=== PATIENT | female | born 1945 | race Caucasian/White ===

== ENCOUNTER 2018-03-25 09:33 | Emergency (ER) | payer OTHER | END 2018-03-25 10:39 | disposition home or self-care (01) | LOC: EDH 09:33 | DX: S93.515A Sprain of interphalangeal joint of left lesser toe(s), initial encounter (principal); S80.01XA Contusion of right knee, initial encounter; S60.512A Abrasion of left hand, initial encounter; Z98.890 Other specified postprocedural states; W10.8XXA Fall (on) (from) other stairs and steps, initial encounter; Y93.89 Activity, other specified; Y92.89 Other specified places as the place of occurrence of the external cause; Y99.8 Other external cause status | CPT/HCPCS: 73502; 73562; 73630 ==

== ENCOUNTER 2018-12-11 11:36 | Emergency (ER) | payer MEDICARE, OTHER ==
[2018-12-11 11:56] LABS: APPEARANCE,URINE Clear (CLEAR); BILIRUBIN,URINE Negative (NEGATIVE); COLOR,URINE Yellow (YELLOW); GLUCOSE, URINE (UA) Negative (NEGATIVE); KETONES,URINE 40 mg/dL (NEGATIVE); LEUKOCYTE ESTERASE ,URINE Small (NEGATIVE); NITRATE,URINE Negative (NEGATIVE); OCCULT BLOOD,URINE Negative (NEGATIVE); PROTEIN,URINE Negative (NEGATIVE)
[2018-12-11 11:56] LABS: BASOPHILS % (AUTO) 0.1 % (0.0-5.0); HEMATOCRIT 37.8 % (36-48); LYMPHOCYTES % (AUTO) 3.1 % (21.0-51.0); MEAN CORPUSCULAR HGB CONC 33.2 g/dL (32.0-36.0); MEAN CORPUSCULAR VOLUME 87.3 fL (79-99); MONOCYTES % (AUTO) 4.4 % (3.0-13.0); NEUTROPHILS % (AUTO) 92.4 % (40.0-77.0); PLATELET COUNT (AUTO) 254 K/uL (130-400); RED BLOOD CELL COUNT(AUTO) 4.33 MIL/uL (4.00-5.50); WHITE BLOOD COUNT (AUTO) 9.8 K/uL (4.8-10.8)
[2018-12-11] MEDS ORDERED: CEFTRIAXONE SODIUM 1 GM ONE (12:04)
[2018-12-11] MEDS ORDERED: SODIUM CHLORIDE 0.9% 50 ML IV ONE (12:05)
[2018-12-11 12:09] LABS: CARBON DIOXIDE 26 mmol/L (21-32); CHLORIDE 104 mmol/L (101-111); CREATININE 0.8 mg/dL (0.5-1.5); GLOMERULAR FILTR. RATE CALC 74 mL/min (>60); GLUCOSE,RANDOM 101 mg/dL (70-105); POTASSIUM 3.8 mmol/L (3.5-5.1); SODIUM SERUM 143 mmol/L (136-145); UREA NITROGEN, BLOOD 7 mg/dL (7-18)
[2018-12-11 12:11] LABS: INR 0.96 (0.85-1.15); PROTHROMBIN TIME 10.1 SEC (9.6-11.6)
[2018-12-11 12:21] LABS: ALANINE AMINOTRANSFERASE 88 U/L (12-78); ALBUMIN 3.5 g/dL (3.5-5.0); ASPARTATE AMINOTRANSFERASE 74 U/L (10-37); BILIRUBIN,TOTAL 0.5 mg/dL (0.2-1.0); CREATINE KINASE, TOTAL 25 U/L (21-232); MYOGLOBIN 44 ng/mL (10-92); TOTAL PROTEIN, SERUM 7.1 g/dL (6.0-8.3); TROPONIN I < 0.04 ng/mL (0.00-0.06)
[2018-12-11] MEDS ORDERED: LEVOFLOXACIN 500 MG/D5W 100 ML 100 ML ONE (12:23)
[2018-12-11 12:34] LABS: BACTERIA,URINE Rare /HPF (None Seen); RBC,URINE 0-1 /HPF (0-1)
[2018-12-11] MEDS ORDERED: METHYLPREDNISOLONE SOD SUCC 125MG/2ML VIAL ONE (13:06)
[2018-12-11] MEDS ORDERED: IPRATROPIUM/ALBUTEROL SULFATE 3 ML SOLUTION IH ONE (13:22)
[2018-12-11] MEDS ORDERED: ACETAMINOPHEN 325 MG TAB ONE (13:32)
[2018-12-11] MEDS ORDERED: ONDANSETRON HCL 4 MG/2 ML VIAL ONE (16:05)
[2018-12-11] MEDS ORDERED: ACETAMINOPHEN-CODEINE 300/30MG TAB ONE (16:05)
[2018-12-11] MEDS ORDERED: SODIUM CHLORIDE 0.9% 500ML 500 ML IV ONE (16:06)
== END 2018-12-11 17:30 | disposition home or self-care (01) ==
LOC: EDH 11:36
DX: J44.9 Chronic obstructive pulmonary disease, unspecified (principal); B34.9 Viral infection, unspecified; J06.9 Acute upper respiratory infection, unspecified; Z88.6 Allergy status to analgesic agent
CPT/HCPCS: 36415; 71045; 80053; 81001; 82550; 83605; 83874; 83880; 84484; 85025; 85610; 85730; 87040 ×2; 87088; 87804 ×2; 93005; 94640; 96365; 96366; 96375; 99285; J0696; J1956; J2405; J2930; J7040

== ENCOUNTER 2019-09-01 10:25 | Observation (INO) | payer MEDICARE ==
[~2019-09-01] VITALS: Ht 160 cm; Wt 54.8 kg
[2019-09-01 13:42] LABS: BASOPHILS % (AUTO) 0.1 % (0.0-5.0); HEMATOCRIT 32.9 % (36-48); LYMPHOCYTES % (AUTO) 6.5 % (21.0-51.0); MEAN CORPUSCULAR HEMOGLOBIN 26.9 pg (27.0-33.0); MEAN CORPUSCULAR HGB CONC 31.9 g/dL (32.0-36.0); MEAN CORPUSCULAR VOLUME 84.1 fL (79-99); MONOCYTES % (AUTO) 5.5 % (3.0-13.0); NEUTROPHILS % (AUTO) 87.5 % (40.0-77.0); PLATELET COUNT (AUTO) 215 K/uL (130-400); RED BLOOD CELL COUNT(AUTO) 3.91 MIL/uL (4.00-5.50); RED CELL DISTRIBUTION WIDTH 14.2 % (11.0-15.5); WHITE BLOOD COUNT (AUTO) 9.6 K/uL (4.8-10.8)
[2019-09-01] MEDS ORDERED: HYDROCODONE/ACETAMINOPHEN 5/325 MG TAB PO PRN (13:45)
[2019-09-01] MEDS ORDERED: ACETAMINOPHEN 325 MG TAB PO PRN (13:45)
[2019-09-01] MEDS ORDERED: LACTULOSE 20 GM/30 ML UDCUP PO PRN (13:45)
[2019-09-01 13:47] LABS: CREATININE 0.9 mg/dL (0.5-1.5); POTASSIUM 3.4 mmol/L (3.5-5.1)
[2019-09-01 13:50] LABS: INR 0.96 (0.85-1.15); PARTIAL THROMBOPLASTIN TIME 24.6 SEC (26.3-35.5); PROTHROMBIN TIME 10.4 SEC (9.6-11.6)
[2019-09-01 13:53] LABS: ALBUMIN 3.2 g/dL (3.5-5.0); BILIRUBIN,TOTAL 0.2 mg/dL (0.2-1.0); TOTAL PROTEIN, SERUM 6.8 g/dL (6.0-8.3)
[2019-09-01] MEDS ORDERED: MORPHINE SULFATE 2 MG/ML 1ML SYG ONE (16:07)
[2019-09-01] MEDS ORDERED: ONDANSETRON HCL 4 MG/2 ML VIAL ONE (16:07)
[2019-09-01 20:10] VITALS: BP 133/52
[2019-09-01] MEDS: FAMOTIDINE/PF 20 MG/2 ML VIAL IV SCH (20:52)
[2019-09-01] MEDS: ACETAMINOPHEN-CODEINE 300/30MG TAB PO PRN (20:53)
[2019-09-01] MEDS ORDERED: TELM80TA10 PO (21:02)
[2019-09-01] MEDS ORDERED: ST.300CA PO (21:02)
[2019-09-01] MEDS ORDERED: FLUT1AER IH (21:02)
[2019-09-01] MEDS ORDERED: FEXO-59 PO (21:02)
[2019-09-01] MEDS ORDERED: HYDR200T4 PO (21:02)
[2019-09-01] MEDS ORDERED: BACL10TA PO (21:02)
[2019-09-01] MEDS ORDERED: OMEP20CA12 PO (21:02)
[2019-09-01] MEDS ORDERED: CALC-691 PO (21:02)
[2019-09-01] MEDS: ONDANSETRON HCL 4 MG/2 ML VIAL IV PRN (23:38)
[2019-09-01] MEDS: MORPHINE SULFATE 2 MG/ML 1ML SYG IVP PRN (23:39)
[2019-09-02] VITALS (7 sets, daily range): BP systolic 112–150; BP diastolic 46–54
[2019-09-02] MEDS: ACETAMINOPHEN-CODEINE 300/30MG TAB PO PRN ×3 (03:15→20:38)
[2019-09-02 05:05] LABS: BASOPHILS % (AUTO) 0.1 % (0.0-5.0); HEMATOCRIT 29.1 % (36-48); MEAN CORPUSCULAR HEMOGLOBIN 26.6 pg (27.0-33.0); MEAN CORPUSCULAR VOLUME 83.4 fL (79-99); MONOCYTES % (AUTO) 11.9 % (3.0-13.0); NEUTROPHILS % (AUTO) 71.9 % (40.0-77.0); PLATELET COUNT (AUTO) 196 K/uL (130-400); RED BLOOD CELL COUNT(AUTO) 3.49 MIL/uL (4.00-5.50); WHITE BLOOD COUNT (AUTO) 7.1 K/uL (4.8-10.8)
[2019-09-02 05:30] LABS: ALBUMIN 2.8 g/dL (3.5-5.0); BILIRUBIN,TOTAL 0.4 mg/dL (0.2-1.0); CREATININE 1.3 mg/dL (0.5-1.5); POTASSIUM 3.8 mmol/L (3.5-5.1)
[2019-09-02 08:06] LABS: APPEARANCE,URINE Clear (CLEAR); BILIRUBIN,URINE Negative (NEGATIVE); COLOR,URINE Yellow (YELLOW); GLUCOSE, URINE (UA) Negative (NEGATIVE); KETONES,URINE Negative (NEGATIVE); LEUKOCYTE ESTERASE ,URINE Trace (NEGATIVE); NITRATE,URINE Negative (NEGATIVE); OCCULT BLOOD,URINE Negative (NEGATIVE); PH,URINE 5.5 (5.0-8.0); PROTEIN,URINE Negative (NEGATIVE); UROBILINOGEN,URINE 0.2 mg/dL (0.2-1.0)
--- NOTE | 2019-09-02 08:25 | NUR ---
Patient stated that shes doesn't want to be seen by Dr Salcido because he dismissed her home yesterday without given her other options. She also mentions that she had a previou sx by Dr Garcia and that her son talked to Dr Garcia last night.
[2019-09-02 08:39] LABS: BACTERIA,URINE None Seen /HPF (None Seen); RBC,URINE None Seen /HPF (0-1); SQUAMOUS EPITHELIAL CELL,UR 0-2 /HPF (0-2); TRANSITIONAL EPI CELLS,URINE Rare /HPF (None Seen); WBC,URINE 0-1 /HPF (0-1)
[2019-09-02] MEDS: FERROUS SULFATE 325 MG TABLET.DR PO SCH ×3 (08:41→20:32)
[2019-09-02] MEDS: FAMOTIDINE/PF 20 MG/2 ML VIAL IV SCH (08:41)
[2019-09-02] MEDS: ENOXAPARIN SODIUM 30 MG/0.3 ML SQ SCH (08:41)
[2019-09-02] MEDS: ONDANSETRON HCL 4 MG/2 ML VIAL IV PRN ×2 (08:52→17:39)
[2019-09-02] MEDS: MORPHINE SULFATE 2 MG/ML 1ML SYG IVP PRN ×2 (08:53→15:56)
[2019-09-02] MEDS ORDERED: BACLOFEN 10 MG TABLET PO PRN (11:30)
--- NOTE | 2019-09-02 11:42 | NUR ---
DR PEREZ HERE TO ROUND WITH PATIENT. INFORMED HIM THAT PATIENT REQUESTS DR CHURCH. DR PEREZ SIGN OFF THE CASE.
[2019-09-02] MEDS: ALBUTEROL SULFATE 0.083% 2.5 MG/3 ML INH IH SCH ×3 (12:10→23:24)
[2019-09-02] MEDS ORDERED: HYDR-4457 PO (16:12)
--- NOTE | 2019-09-02 18:26 | NUR ---
[facility] ATTEMPTED CALL TO PATIENT'S PHONE, TURNED OFF, CALL TO NUMBERS ON FACE SHEET- CALL TO TRESSA LOJA, DAUGHTER, STATES MOM PREVIOUSLY INDEPENDENT, SERJIO, LIVES ALONE, HOME SAFE AND ACCESSIBLE, STIAR OUTSIDE THE HOUSE, NO DME OR HH OR PROVIDER SERVICES, CM TO FOLLOW WITH AFTER CARE NEEDS . Addendum: 09/02/19 at 1828 by SUBHA CHASE RN CM Amended: Links added.
[2019-09-02 19:04] LABS: POTASSIUM 3.8 mmol/L (3.5-5.1)
[2019-09-02] MEDS: BUDESONIDE 0.5 MG/2 ML INH IH SCH (19:05)
[2019-09-02 19:08] LABS: ALBUMIN 2.9 g/dL (3.5-5.0); BILIRUBIN,TOTAL 0.3 mg/dL (0.2-1.0); TOTAL PROTEIN, SERUM 6.3 g/dL (6.0-8.3)
[2019-09-02] MEDS: HYDROXYCHLOROQUINE SULFATE 200 MG TAB PO SCH (20:32)
[2019-09-02] MEDS: SODIUM CHLORIDE 0.9% 1000ML 1,000 ML IV SCH (20:38)
[2019-09-02] MEDS ORDERED: LOSARTAN 50 MG TABLET PO SCH (21:00)
[2019-09-03] MEDS: MORPHINE SULFATE 2 MG/ML 1ML SYG IVP PRN ×2 (01:33→08:32)
[2019-09-03] MEDS: ACETAMINOPHEN-CODEINE 300/30MG TAB PO PRN (03:09)
[2019-09-03 03:39] VITALS: BP 108/70
[2019-09-03 05:57] LABS: BASOPHILS % (AUTO) 0.2 % (0.0-5.0); EOSINOPHILS % (AUTO) 1.3 % (0.0-8.0); HEMATOCRIT 26.2 % (36-48); LYMPHOCYTES % (AUTO) 18.6 % (21.0-51.0); MEAN CORPUSCULAR HEMOGLOBIN 26.2 pg (27.0-33.0); MEAN CORPUSCULAR HGB CONC 31.3 g/dL (32.0-36.0); MEAN CORPUSCULAR VOLUME 83.7 fL (79-99); NEUTROPHILS % (AUTO) 65.7 % (40.0-77.0); PLATELET COUNT (AUTO) 185 K/uL (130-400); RED BLOOD CELL COUNT(AUTO) 3.13 MIL/uL (4.00-5.50); RED CELL DISTRIBUTION WIDTH 14.2 % (11.0-15.5); WHITE BLOOD COUNT (AUTO) 6.2 K/uL (4.8-10.8)
[2019-09-03] MEDS: ALBUTEROL SULFATE 0.083% 2.5 MG/3 ML INH IH SCH (06:09)
[2019-09-03] MEDS: BUDESONIDE 0.5 MG/2 ML INH IH SCH (06:09)
[2019-09-03 06:33] LABS: ALBUMIN 2.6 g/dL (3.5-5.0); BILIRUBIN,TOTAL 0.3 mg/dL (0.2-1.0); POTASSIUM 3.7 mmol/L (3.5-5.1)
[2019-09-03 06:57] LABS: CREATININE 0.9 mg/dL (0.5-1.5)
[2019-09-03 08:00] VITALS: BP 130/52
[2019-09-03] MEDS: ONDANSETRON HCL 4 MG/2 ML VIAL IV PRN (08:31)
[2019-09-03] MEDS: SODIUM CHLORIDE 0.9% 1000ML 1,000 ML IV SCH (08:54)
[2019-09-03] MEDS: HYDROXYCHLOROQUINE SULFATE 200 MG TAB PO SCH (09:00)
[2019-09-03] MEDS: ENOXAPARIN SODIUM 30 MG/0.3 ML SQ SCH (09:00)
[2019-09-03] MEDS ORDERED: CETIRIZINE HCL 5 MG TABLET PO SCH (09:00)
[2019-09-03] MEDS: FERROUS SULFATE 325 MG TABLET.DR PO SCH (09:00)
[2019-09-03] MEDS ORDERED: PANTOPRAZOLE SODIUM 40 MG TABLET.DR PO PRN (09:00)
[2019-09-03] MEDS ORDERED: CALCIUM 600 + VITAMIN D 400 TABLET PO SCH (09:00)
== END 2019-09-03 11:00 | disposition home or self-care (01) ==
LOC: EDH 10:25 → EDHIP 13:43 → INTOOBSV 13:43 → 3DH 19:32
PROVIDERS: ADMIT Family Medicine; ATTEND Family Medicine
DX: S42.212A Unspecified displaced fracture of surgical neck of left humerus, initial encounter for closed fracture (principal); N17.9 Acute kidney failure, unspecified; I10 Essential (primary) hypertension; M35.00 Sjogren syndrome, unspecified; E86.0 Dehydration; Z87.891 Personal history of nicotine dependence; Z88.8 Allergy status to other drugs, medicaments and biological substances; W01.0XXA Fall on same level from slipping, tripping and stumbling without subsequent striking against object, initial encounter; Y93.89 Activity, other specified; Y92.098 Other place in other non-institutional residence as the place of occurrence of the external cause; Y99.8 Other external cause status
CPT/HCPCS: 36415 ×3; 70450; 71045; 73030; 73200; 80053 ×4; 81001; 82550; 84484; 85025 ×3; 85610; 85730; 93005; 94640 ×6; 94664; 96372; 96374; 96375; 96376 ×2; 99285; G0378 ×12; J1650 ×2; J2405 ×5; J3490 ×2

== ENCOUNTER 2021-11-09 12:23 | Emergency (ER) | payer MEDICARE, OTHER ==
[~2021-11-09] VITALS: Ht 157.5 cm; Wt 54.4 kg
[~2021-11-09 12:23] MED LIST: BACL10TA PO; CALC-691 PO; FEXO-263 PO; FLUT1AER IH; HYDR-4457 PO; HYDR200T4 PO; OMEP20CA12 PO; ST.300CA PO; TELM80TA10 PO
[2021-11-09] MEDS ORDERED: ONDANSETRON 4MG INJ IVP ONE (13:00)
[2021-11-09] MEDS ORDERED: 0.9%NACL 1000ML 1,000 ML IV SCH (13:00)
[2021-11-09] MEDS ORDERED: ACETAMINOPHEN 500 MG TABLET PO ONE (13:00)
[2021-11-09 13:29] LABS: BASOPHILS % (AUTO) 0.2 % (0.0-5.0); HEMATOCRIT 36.5 % (36-48); MEAN CORPUSCULAR HEMOGLOBIN 25.8 pg (27.0-33.0); MEAN CORPUSCULAR HGB CONC 31.5 g/dL (32.0-36.0); NEUTROPHILS % (AUTO) 83.6 % (40.0-77.0); PLATELET COUNT (AUTO) 193 K/uL (130-400); RED BLOOD CELL COUNT(AUTO) 4.45 MIL/uL (4.00-5.50); RED CELL DISTRIBUTION WIDTH 15.1 % (11.0-15.5); WHITE BLOOD COUNT (AUTO) 5.7 K/uL (4.8-10.8)
[2021-11-09 13:34] LABS: APPEARANCE,URINE Clear (CLEAR); BILIRUBIN,URINE Negative (NEGATIVE); COLOR,URINE Yellow (YELLOW); GLUCOSE, URINE (UA) Negative (NEGATIVE); KETONES,URINE 15 mg/dL (NEGATIVE); LEUKOCYTE ESTERASE ,URINE Trace (NEGATIVE); NITRATE,URINE Negative (NEGATIVE); OCCULT BLOOD,URINE Negative (NEGATIVE); PROTEIN,URINE Trace mg/dL (NEGATIVE); UROBILINOGEN,URINE 0.2 mg/dL (0.2-1.0)
[2021-11-09 13:43] LABS: POTASSIUM 3.7 mmol/L (3.5-5.1)
[2021-11-09 13:49] LABS: ALBUMIN 3.4 g/dL (3.5-5.0); CRP QUANTITATIVE 26.4 mg/L (0.00-9.0); TOTAL PROTEIN, SERUM 7.2 g/dL (6.0-8.3)
[2021-11-09 13:53] LABS: BACTERIA,URINE Rare /HPF (None Seen); RBC,URINE 0-1 /HPF (0-1); SQUAMOUS EPITHELIAL CELL,UR Rare /HPF (0-2); WBC,URINE 0-1 /HPF (0-1)
[2021-11-09] MEDS ORDERED: D-ME1POW16 PO (14:10)
[2021-11-09 14:18] VITALS: BP 155/55
== END 2021-11-09 14:32 | disposition home or self-care (01) ==
LOC: EDH 12:23
DX: U07.1 COVID-19 (principal); E86.0 Dehydration; J06.9 Acute upper respiratory infection, unspecified; J44.9 Chronic obstructive pulmonary disease, unspecified; I10 Essential (primary) hypertension
CPT/HCPCS: 99284; 96374; 71045; 87635; 96361; 84484; 80053; 85025; 87804 ×2; 86140; 81001; 36415; C9803; J7030; J2405

== ENCOUNTER 2022-06-11 15:17 | Inpatient (IN) | payer OTHER ==
[~2022-06-11] VITALS: Ht 160 cm; Wt 54.0 kg
[~2022-06-11 15:17] MED LIST changes: +D-ME1POW16 PO
[2022-06-11 15:46] LABS: BASOPHILS % (AUTO) 0.2 % (0.0-5.0); HEMATOCRIT 35.7 % (36-48); LYMPHOCYTES % (AUTO) 1.7 % (21.0-51.0); MEAN CORPUSCULAR HEMOGLOBIN 26.2 pg (27.0-33.0); MEAN CORPUSCULAR HGB CONC 31.1 g/dL (32.0-36.0); MEAN CORPUSCULAR VOLUME 84.4 fL (79-99); MONOCYTES % (AUTO) 3.7 % (3.0-13.0); PLATELET COUNT (AUTO) 344 K/uL (130-400); RED BLOOD CELL COUNT(AUTO) 4.23 MIL/uL (4.00-5.50); RED CELL DISTRIBUTION WIDTH 14.6 % (11.0-15.5); WHITE BLOOD COUNT (AUTO) 24.7 K/uL (4.8-10.8)
[2022-06-11] MEDS ORDERED: CEFTRIAXONE 1G VIAL IVP ONE (16:00)
[2022-06-11 16:01] LABS: CREATININE 1.1 mg/dL (0.5-1.5); POTASSIUM 3.6 mmol/L (3.5-5.1)
[2022-06-11] MEDS ORDERED: AZITHROMYCIN 250 MG TABLET PO ONE ×2 (16:08→16:30)
[2022-06-11 16:09] LABS: APPEARANCE,URINE CLEAR (CLEAR); BILIRUBIN,URINE NEGATIVE (NEGATIVE); COLOR,URINE LIGHT-YELLOW (YELLOW); GLUCOSE, URINE (UA) NEGATIVE (NEGATIVE); KETONES,URINE NEGATIVE (NEGATIVE); LEUKOCYTE ESTERASE ,URINE 25 Leu/uL (NEGATIVE); NITRATE,URINE NEGATIVE (NEGATIVE); OCCULT BLOOD,URINE NEGATIVE (NEGATIVE); PH,URINE 6.5 (5.0-8.0); PROTEIN,URINE NEGATIVE (NEGATIVE); UROBILINOGEN,URINE 0.2 mg/dL (0.2-1.0)
[2022-06-11 16:19] LABS: ALBUMIN 3.5 g/dL (3.5-5.0); TOTAL PROTEIN, SERUM 7.5 g/dL (6.0-8.3)
[2022-06-11 16:26] LABS: BACTERIA,URINE RARE /HPF (None Seen); MUCUS,URINE RARE LPF (None Seen); SQUAMOUS EPITHELIAL CELL,UR RARE /HPF (0-2)
[2022-06-11] MEDS ORDERED: ONDANSETRON 4MG INJ IVP PRN (17:00)
[2022-06-11] MEDS ORDERED: MAGNESIUM 2GM PREMIX 50ML 50 ML IV PRN (17:00)
[2022-06-11] MEDS ORDERED: GLUCAGON 1MG KIT 1 MG ML IM PRN (17:00)
[2022-06-11] MEDS ORDERED: DEXTROSE 50%-WATER 50 ML DISP.SYRIN IV PRN (17:00)
[2022-06-11] MEDS ORDERED: ALPRAZOLAM 0.25 MG TABLET PO PRN (17:00)
[2022-06-11] MEDS ORDERED: LIDOCAINE HCL-MPF 1% 2ML VIAL IV PRN ×2 (17:00)
[2022-06-11] MEDS ORDERED: KCL 20 MEQ ERTAB PO PRN (17:00)
[2022-06-11] MEDS ORDERED: LEVOFLOXACIN 500 MG TABLET PO ONE (17:00)
[2022-06-11] MEDS ORDERED: POTASSIUM CHLORIDE 10% ELIXIR 20 MEQ/15 ML UDCUP PO PRN (17:00)
[2022-06-11] MEDS ORDERED: POTASSIUM CHLORIDE 10MEQ/100ML 100 ML IV PRN ×2 (17:00)
[2022-06-11] MEDS: 0.9%NACL 1000ML 1,000 ML IV SCH (17:04)
[2022-06-11] MEDS: SOLU-MEDROL 40MG VIAL IVP SCH (17:04)
[2022-06-11 17:12] LABS: ABG BASE EXCESS -0.6 mmol/L (-2.0-3.0); ABG HCO3 23.4 mmol/L (21.0-28.0); ABG OXYGEN SATURATION 98.7 % (95.0-99.0); ABG PCO2 37 mmHg (32-45)
[2022-06-11] MEDS ORDERED: FUROSEMIDE 40MG VIAL IV ONE (17:30)
[2022-06-11] MEDS ORDERED: HEPARIN 25,000 UNITS/250ML D5W 250 ML IV SCH (17:30)
[2022-06-11] MEDS ORDERED: ALBUTEROL INHALER 90MCG/INH IH PRN (17:30)
[2022-06-11] MEDS ORDERED: HEPARIN 5,000 UNIT VIAL SQ PRN (17:30)
[2022-06-11] MEDS ORDERED: LIDOCAINE HCL 1% 20 ML VIAL ONE (17:38)
[2022-06-11] MEDS: BUDESONIDE 0.5 MG/2 ML INH IH SCH (18:29)
[2022-06-11] MEDS: IPRATROPIUM 0.5 MG/2.5 ML INH IH SCH ×2 (18:29→23:42)
[2022-06-11] MEDS ORDERED: ENOXAPARIN SODIUM 60 MG/0.6 ML SQ SCH (22:00)
[2022-06-11] MEDS: ZOSYN 3.375GM +NS 50ML IVPB SCH (23:12)
[2022-06-11 23:34] VITALS: BP 129/69
[2022-06-12] MEDS: SOLU-MEDROL 40MG VIAL IVP SCH ×3 (00:27→15:17)
[2022-06-12 03:39] VITALS: BP 116/58
[2022-06-12 04:07] LABS: MEAN CORPUSCULAR HEMOGLOBIN 26.2 pg (27.0-33.0); MEAN CORPUSCULAR HGB CONC 31.2 g/dL (32.0-36.0); RED BLOOD CELL COUNT(AUTO) 4.05 MIL/uL (4.00-5.50); RED CELL DISTRIBUTION WIDTH 14.5 % (11.0-15.5); WHITE BLOOD COUNT (AUTO) 21.4 K/uL (4.8-10.8)
[2022-06-12 04:27] LABS: CREATININE 1.2 mg/dL (0.5-1.5); MAGNESIUM 1.9 mg/dL (1.80-2.40); POTASSIUM 4.4 mmol/L (3.5-5.1)
[2022-06-12] MEDS: PHARMACY COMMUNICATION MISC SCH ×2 (05:30→23:00)
[2022-06-12] MEDS: 0.9%NACL 1000ML 1,000 ML IV SCH (06:20)
[2022-06-12] MEDS: BUDESONIDE 0.5 MG/2 ML INH IH SCH ×2 (06:54→18:23)
[2022-06-12] MEDS: IPRATROPIUM 0.5 MG/2.5 ML INH IH SCH ×4 (06:54→23:30)
[2022-06-12 07:01] VITALS: BP 130/70
[2022-06-12] MEDS ORDERED: ASPIRIN 325MG TAB PO ONE (07:30)
[2022-06-12] MEDS ORDERED: ATORVASTATIN 40 MG TABLET PO ONE (07:30)
[2022-06-12] MEDS: ZOSYN 3.375GM +NS 50ML IVPB SCH ×3 (08:05→22:29)
[2022-06-12] MEDS: HYDROXYCHLOROQUINE SULFATE 200 MG TAB PO SCH ×3 (08:07→22:31)
[2022-06-12] MEDS: FLUTICASONE/VILANTEROL 1 EACH AER.POW.BA IH SCH (08:18)
[2022-06-12] MEDS ORDERED: ENOXAPARIN SODIUM 60 MG/0.6 ML SQ SCH (09:00)
[2022-06-12] MEDS ORDERED: HEPARIN 5,000 UNIT VIAL ONE (09:10)
[2022-06-12] MEDS: HEPARIN 25,000 UNITS/250ML D5W 250 ML IV SCH (09:23)
[2022-06-12 09:43] LABS: INR 1.07 (0.85-1.15); PROTHROMBIN TIME 11.6 SEC (9.6-11.6)
[2022-06-12 11:00] VITALS: BP 118/62
[2022-06-12 15:00] VITALS: BP 126/78
[2022-06-12] MEDS: LEVOFLOXACIN 500 MG TABLET PO SCH (15:17)
[2022-06-12] MEDS: ACETAMINOPHEN 325 MG TAB PO PRN (16:04)
[2022-06-12 18:52] VITALS: BP 117/60
[2022-06-12] MEDS: TELMISARTAN 80 MG PO SCH (21:00)
[2022-06-12 23:04] VITALS: BP 127/64
[2022-06-13] MEDS: ACETAMINOPHEN 325 MG TAB PO PRN ×2 (00:26→21:52)
[2022-06-13 03:18] LABS: HEMATOCRIT 30.2 % (36-48); MEAN CORPUSCULAR HEMOGLOBIN 26.3 pg (27.0-33.0); MEAN CORPUSCULAR HGB CONC 30.8 g/dL (32.0-36.0); MEAN CORPUSCULAR VOLUME 85.6 fL (79-99); PLATELET COUNT (AUTO) 271 K/uL (130-400); RED BLOOD CELL COUNT(AUTO) 3.53 MIL/uL (4.00-5.50); RED CELL DISTRIBUTION WIDTH 14.6 % (11.0-15.5); WHITE BLOOD COUNT (AUTO) 23.8 K/uL (4.8-10.8)
[2022-06-13 03:20] VITALS: BP 133/71
[2022-06-13 03:40] LABS: CREATININE 1.2 mg/dL (0.5-1.5); MAGNESIUM 2.1 mg/dL (1.80-2.40); PHOSPHORUS 4.1 mg/dL (2.5-4.9); POTASSIUM 4.3 mmol/L (3.5-5.1)
[2022-06-13] MEDS: SOLU-MEDROL 40MG VIAL IVP SCH ×2 (05:07→13:45)
[2022-06-13] MEDS: ZOSYN 3.375GM +NS 50ML IVPB SCH ×3 (06:29→22:49)
[2022-06-13] MEDS: IPRATROPIUM 0.5 MG/2.5 ML INH IH SCH ×4 (07:09→23:56)
[2022-06-13] MEDS: BUDESONIDE 0.5 MG/2 ML INH IH SCH ×2 (07:10→18:47)
[2022-06-13 08:12] VITALS: BP 151/74
[2022-06-13] MEDS: PANTOPRAZOLE 40 MG TAB DR PO SCH (08:53)
[2022-06-13] MEDS: METOPROLOL SUCCINATE 25 MG TAB.SR.24H PO SCH (08:53)
[2022-06-13] MEDS: FLUTICASONE/VILANTEROL 1 EACH AER.POW.BA IH SCH (08:58)
[2022-06-13] MEDS: ASPIRIN 81 MG EC TAB PO SCH (10:02)
[2022-06-13] MEDS ORDERED: CLOPIDOGREL 300MG TAB PO SCH (10:03)
[2022-06-13 12:17] VITALS: BP 154/77
[2022-06-13] MEDS ORDERED: IOHEXOL 350 MG/ML 100ML INFUS..BTL IV ONE (12:21)
[2022-06-13] MEDS: LEVOFLOXACIN 500 MG TABLET PO SCH (13:45)
[2022-06-13 15:57] VITALS: BP 138/69
[2022-06-13] MEDS ORDERED: SOLU-MEDROL 40MG VIAL IVP SCH (17:00)
[2022-06-13 19:16] VITALS: BP 144/75
[2022-06-13] MEDS ORDERED: BACLOFEN 10 MG TABLET PO PRN (20:00)
[2022-06-13] MEDS ORDERED: ATORVASTATIN 40 MG TABLET PO SCH (21:00)
[2022-06-13] MEDS: HYDROXYCHLOROQUINE SULFATE 200 MG TAB PO SCH (21:52)
[2022-06-13] MEDS: TELMISARTAN 80 MG PO SCH (21:59)
[2022-06-13] MEDS: HEPARIN 25,000 UNITS/250ML D5W 250 ML IV SCH (22:49)
[2022-06-13 23:27] VITALS: BP 137/69
[2022-06-14 03:12] VITALS: BP 136/68
[2022-06-14] MEDS ORDERED: SOLU-MEDROL 40MG VIAL IVP SCH (05:00)
[2022-06-14] MEDS: ZOSYN 3.375GM +NS 50ML IVPB SCH ×2 (06:06→14:38)
[2022-06-14 06:35] VITALS: BP 118/64
[2022-06-14] MEDS: IPRATROPIUM 0.5 MG/2.5 ML INH IH SCH ×3 (07:12→18:00)
[2022-06-14] MEDS: BUDESONIDE 0.5 MG/2 ML INH IH SCH ×2 (07:12→18:00)
[2022-06-14] MEDS ORDERED: CLOPIDOGREL 75MG TAB PO SCH (09:00)
[2022-06-14] MEDS: FLUTICASONE/VILANTEROL 1 EACH AER.POW.BA IH SCH (09:00)
[2022-06-14] MEDS: PHARMACY COMMUNICATION MISC SCH ×3 (09:30→11:16)
[2022-06-14] MEDS: ASPIRIN 81 MG EC TAB PO SCH (09:52)
[2022-06-14] MEDS: METOPROLOL SUCCINATE 25 MG TAB.SR.24H PO SCH (09:52)
[2022-06-14] MEDS: PANTOPRAZOLE 40 MG TAB DR PO SCH (09:52)
[2022-06-14] MEDS: HYDROXYCHLOROQUINE SULFATE 200 MG TAB PO SCH (09:52)
[2022-06-14 11:30] VITALS: BP 131/68
[2022-06-14] MEDS: LEVOFLOXACIN 500 MG TABLET PO SCH (14:38)
[2022-06-14] MEDS ORDERED: PRED20TA3 PO (16:00)
[2022-06-14] MEDS ORDERED: LEVO-70 PO (16:00)
[2022-06-14] MEDS ORDERED: AEC81 PO (16:00)
[2022-06-14] MEDS ORDERED: CLOP-31 PO (16:00)
[2022-06-14] MEDS ORDERED: METO25TA3 PO (16:00)
[2022-06-14] MEDS ORDERED: ATOR40TA69 PO (16:00)
== END 2022-06-14 19:06 | disposition home or self-care (01) | DRG 177 ==
LOC: EDH 15:17 → EDHIP 16:31 → OBSVTOIN 16:31 → 2AH 23:32
PROVIDERS: ADMIT Internal Medicine Critical Care Medicine; ATTEND Internal Medicine Critical Care Medicine
DX: U07.1 COVID-19 (principal); I21.A1 Myocardial infarction type 2; J12.82 Pneumonia due to coronavirus disease 2019; J96.01 Acute respiratory failure with hypoxia; J44.1 Chronic obstructive pulmonary disease with (acute) exacerbation; J44.0 Chronic obstructive pulmonary disease with (acute) lower respiratory infection; I12.9 Hypertensive chronic kidney disease with stage 1 through stage 4 chronic kidney disease, or unspecified chronic kidney disease; N18.31 Chronic kidney disease, stage 3a; M35.00 Sjogren syndrome, unspecified; D64.9 Anemia, unspecified; Z78.9 Other specified health status; Z99.81 Dependence on supplemental oxygen
CPT/HCPCS: 36415; 36600; 71045; 71270; 80048; 80053; 81001; 82550; 82803; 83605; 83735; 83874; 83880; 84100; 84145; 84484; 85025; 85027; 85378; 85610; 85730; 86140; 87040; 87088; 87635; 87804; 93005; 93306; 93356; 94640; 94664; 94760; 96361; 96372; 96374; 96375; 99291; G0378; J0696; J1644; J1650; J1940; J2405; J2543; J2920; J3475; J7030; Q9967

== ENCOUNTER 2023-02-10 15:39 | Emergency (ER) | payer OTHER ==
[~2023-02-10] VITALS: Ht 167.6 cm; Wt 72.6 kg
[~2023-02-10 15:39] MED LIST changes: +AEC81 PO; +ATOR40TA69 PO; +CLOP-31 PO; -HYDR200T4 PO; +HYDR200T75 PO; +LEVO-70 PO; +METO25TA3 PO; +PRED20TA3 PO
[2023-02-10 15:41] VITALS: BP 163/78; PULSE 84; RESP 18
[2023-02-10] MEDS ORDERED: ACETAMINOPHEN WITH CODEINE 1 TAB TAB PO ONE (17:00)
== END 2023-02-10 19:39 | disposition home or self-care (01) ==
LOC: EDH 15:39
DX: S93.402A Sprain of unspecified ligament of left ankle, initial encounter (principal); M19.90 Unspecified osteoarthritis, unspecified site; I10 Essential (primary) hypertension; Z79.52 Long term (current) use of systemic steroids; Z79.02 Long term (current) use of antithrombotics/antiplatelets; Z79.51 Long term (current) use of inhaled steroids; Z79.82 Long term (current) use of aspirin; Z79.899 Other long term (current) drug therapy; Z88.6 Allergy status to analgesic agent; W10.8XXA Fall (on) (from) other stairs and steps, initial encounter; Y93.89 Activity, other specified; Y92.89 Other specified places as the place of occurrence of the external cause; Y99.8 Other external cause status
CPT/HCPCS: 70450; 71045; 72125; 72170; 73610